=== PATIENT | male | born 1960 | race Caucasian/White ===

== ENCOUNTER → 2018-02-15 | Outpatient (CLI) | payer MEDICAID | LOC: FIMAGING 10:11 | PROVIDERS: ATTEND Internal Medicine | DX: B18.2 Chronic viral hepatitis C (principal); K80.20 Calculus of gallbladder without cholecystitis without obstruction ==

== ENCOUNTER 2018-07-04 12:17 | Emergency (ER) | payer MEDICAID ==
[2018-07-04 12:29] VITALS: BP 110/76
[2018-07-04] MEDS ORDERED: AMOXICILLIN/CLAVULANATE POT 875/125 MG TAB PO ONE (12:33)
--- NOTE | 2018-07-04 12:33 | EDPHY ---
H & P Stated Complaint: left upper tooth pain since yesterday. pt reports he thinks it 's an abcess Time Seen by Provider: 07/04/18 12:25 HPI/ROS: CHIEF COMPLAINT: Tooth infection HISTORY OF PRESENT ILLNESS: Patient is a 57-year-old man with a history of bipolar methamphetamine abuse. He comes to the emergency department complaining of pain to his 15th Molar. It began 2-3 days ago. No fever. Today he noticed some slight swelling in his left cheek as well. He has not yet been to the dentist. This tooth has previously had a root canal several years ago. Severity: Moderate Modifying factors: None REVIEW OF SYSTEMS: Constitutional: denies: chills, fever, recent illness, recent injury EENTM: See HPI Respiratory: denies: cough, shortness of breath Cardiac: denies: chest pain, irregular heart rate, lightheadedness, palpitations Gastrointestinal/Abdominal: denies: abdominal pain, diarrhea, nausea, vomiting, blood streaked stools Genitourinary: denies: dysuria, frequency, hematuria, pain Musculoskeletal: denies: joint pain, muscle pain Skin: denies: lesions, rash, jaundice, bruising Neurological: denies: headache, numbness, paresthesia, tingling, dizziness, weakness Hematologic/Lymphatic: denies: blood clots, easy bleeding, easy bruising Immunologic/allergic: denies: HIV/AIDS, transplant 10 systems reviewed and negative except as noted EXAM: GENERAL: Well-appearing, well-nourished and in no acute distress. HEAD: Atraumatic, normocephalic. EYES: Pupils equal round and reactive to light, extraocular movements intact, sclera anicteric, conjunctiva are normal. ENT: See diagram NECK: Normal range of motion, LUNGS: Breath sounds clear HEART: Regular rate and rhythm ABDOMEN: Soft, nontender, normoactive bowel sounds. No guarding, no rebound. No masses appreciated. BACK: No CVA tenderness, no spinal tenderness, step-offs or deformities EXTREMITIES: Normal range of motion, no pitting or edema. No clubbing or cyanosis. NEUROLOGICAL: Cranial nerves II through XII grossly intact. Normal speech, normal gait. 5/5 strength, normal movement in all extremities, normal sensation , PSYCH: Normal mood, normal affect. SKIN: Warm, dry, normal turgor, no visible rashes or lesions. Source: Patient Exam Limitations: No limitations - Personal History Current Tetanus Diphtheria and Acellular Pertussis (TDAP): Unsure - Medical/Surgical History Hx Asthma: No Hx Chronic Respiratory Disease: No Hx Diabetes: No Hx Cardiac Disease: No Hx Renal Disease: No Hx Cirrhosis: No Hx Alcoholism: No Hx HIV/AIDS: No Hx Splenectomy or Spleen Trauma: No Other PMH: med hx-bipolar. surg-? - Family History Significant Family History: No pertinent family hx - Social History Smoking Status: Current every day smoker Alcohol Use: Sober Drug Use: None Constitutional: Initial Vital Signs Temperature (C) 36.3 C 07/04/18 12:24 Heart Rate 71 07/04/18 12:24 Respiratory Rate 16 07/04/18 12:24 Blood Pressure 110/76 07/04/18 12:24 O2 Sat (%) 97 07/04/18 12:24 O2 Delivery Mode Room Air Allergies/Adverse Reactions: naproxen Allergy (Intermediate, Verified 01/25/16 19:03) meperidine HCl [From Demerol] Allergy (Verified 01/25/16 19:03) Home Medications: Medication Instructions Recorded Another Med? 01/25/16 Zyprexa 01/25/16 Amoxicillin/Clavulanate Pot 875 mg PO BID #14 tab 07/04/18 [Augmentin 875Mg] ED Images - Head Mouth: 1 - Tender, cold feeling, mild surrounding erythema. No fluctuance or abscess seen Medical Decision Making ED Course/Re-evaluation: 12:30 p.m. the patient appears to have a dental infection possibly an apical abscess. This tooth has previously had a root canal. He states that he wants the dentist to pull it out. Will start him on Augmentin until he can follow up with his dentist. Encouraged Tylenol and ibuprofen for pain control. Differential Diagnosis: Partial list of the Differential diagnosis considered include but were not limited to; dental infection, apical abscess, dental kay and although unlikely based on the history and physical exam, I also considered trauma, infection, facial infection. - Data Points Medications Given: Discontinued Medications Amoxicillin/Clavulanate Potassium (Augmentin 875mg) 875 mg PO EDNOW ONE PRN Reason: Protocol Stop: 07/04/18 12:34 Last Admin: 07/04/18 12:40 Dose: 875 mg Departure - Departure Disposition: Home, Routine, Self-Care Clinical Impression: Dental infection Condition: Fair Instructions: Dental Abscess (ED) Referrals: Becky Edwards NP [Primary Care Provider] - As per Instructions [facility] [Outside] - 2-3 days, call for appt. [facility] [Outside] - 2-3 days, call for appt. Prescriptions: Amoxicillin/Clavulanate Pot [Augmentin 875Mg] 875 mg PO BID #14 tab
== END 2018-07-04 12:42 | disposition home or self-care (01) ==
LOC: CED 12:17
DX: K04.7 Periapical abscess without sinus (principal)
CPT/HCPCS: 99283-ER